=== PATIENT | female | born 1935 | race Caucasian/White ===

== ENCOUNTER 2016-07-27 16:12 | Observation (INO) | payer OTHER, MEDICARE ==
[~2016-07-27] VITALS: Ht 157.5 cm; Wt 51.3 kg
[~2016-07-27 16:12] MED LIST: VICODIN 5-3001 EACH PO
[2016-07-27] MEDS ORDERED: VALSARTAN80 M1 PO (16:41)
[2016-07-27] MEDS ORDERED: ANASTROZOLE1 M1 PO (16:41)
[2016-07-27] MEDS ORDERED: MULTAQ400 M1 PO (16:41)
[2016-07-27] MEDS ORDERED: ADVAIR 100-501 EACH INH (16:41)
[2016-07-27] MEDS ORDERED: SPIRIVA18 MCG INH (16:41)
[2016-07-27] MEDS ORDERED: ZOLPIDEM TARTRA10 M1 PO (16:42)
[2016-07-27] MEDS ORDERED: ASPIRIN EC325 M2 PO (16:42)
--- NOTE | 2016-07-27 16:42 | ED GENERAL ADULT ---
History of Present Illness General Chief Complaint: Chest Pain Stated Complaint: SIB DR. WYATT FOR EVAL/ADMISSION, ?[place] Source: patient Exam Limitations: no limitations Vital Signs & Intake/Output Vital Signs & Intake/Output Vital Signs Date Time Temp Pulse Resp B/P B/P Pulse O2 O2 Flow FiO2 Mean Ox Delivery Rate 07/27 2029 Nasal 2.0L Cannula 07/27 1946 74 20 154/70 95 Nasal 2.0L Cannula 07/27 1908 97.2 59 16 157/70 96 Room Air 07/27 1633 98.9 97 18 157/77 97 Room Air Allergies Coded Allergies: venom-honey bee (ANAPHYLAXIS 07/27/16) Reconcile Medications Anastrozole 1 MG TABLET 1 TAB PO DAILY BREAST CANCER (Reported) Aspirin (Ecotrin*) 325 MG TABLET.DR 1 TAB PO DAILY HEART/BLOOD (Reported) Calcium Carbonate/Vitamin D3 (Calcium 500 + D Tablet) (Unknown Strength) TABLET (Unknown Dose) PO DAILY SUPPLEMENT (Reported) Diltiazem HCl (Cartia Xt) 120 MG CAP.ER.24H 1 CAP PO DAILY HEART/BP (Reported ) Dronedarone HCl (Multaq) 400 MG TABLET 1 TAB PO DAILY HEART (Reported) Fluticasone-Salmeterol (Advair 100-50 Diskus) 100 MCG-50 MCG/DOSE BLST.W.DEV 1 PUF INH BID COPD (Reported) Gluc 2KCL/Chondr/Ghulam Hy/Hy AC (Glucosamine & Chondroitin Cap) (Unknown Strength ) CAPSULE (Unknown Dose) PO DAILY SUPPLEMENT (Reported) Tiotropium [place] (Spiriva) 18 MCG CAP.W.DEV 1 CAP INH DAILY COPD (Reported) Valsartan 80 MG TABLET 1 TAB PO DAILY BP (Reported) Zolpidem Tartrate 10 MG TABLET 1 TAB PO PRN SLEEP (Reported) Triage Note: PT TO ED FROM DR. WYATT'S OFFICE FOR ONE EPISDOE OF CHEST TIGHTNESS AROUND "LUNCH TIME" TODAY. PT REPORTING SHE WAS EATING LUNCH AND FELT A TIGHTNESS AROUND HER CHEST AND INTO BOTH HER SHOULDERS, STATING SHE HAD SOME ASSOCIATED SOB AND NAUSEA WHICH RESOLVED ON ITS OWN. SHE CALLED EDMUNDO WHO SAW HER IN THE OFFICE AND REFERRED HER TO COME TO ED FOR EVAL. ON ARRIVAL, PT REPORTING SHE FEELS TIRED BUT IS CP FREE. Triage Nurses Notes Reviewed? yes Onset: Abrupt Duration: day(s): Timing: recent history HPI: 5/30/17 5:10 PM 81-year-old female presents to the emergency department complaining of chest tightness. The patient states several hours ago she was at home and developed retrosternal chest pain radiating across her chest. She said the episode lasted approximately 15 minutes. The onset of the symptoms were abrupt, the duration was earlier today, the severity was significant; as her symptoms required her to come to the emergency department for care. She was seen and evaluated by her animal science professor who referred the patient to the hospital for inpatient observation. Past History Travel History Traveled to [place] past 21 day No Medical History Any Pertinent Medical History? 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 No Review of Systems Review of Systems Constitutional: Denies: fever. EENTM: Denies: visual changes. Respiratory: Denies: short of breath. Cardiovascular: Reports: chest pain. GI: Denies: abdominal pain. Genitourinary: Reports: no symptoms. Musculoskeletal: Reports: no symptoms. Skin: Reports: no symptoms. Neurological/Psychological: Denies: headache. Hematologic/Endocrine: Denies: bruising. Immunologic/Allergic: Reports: no symptoms. Physical Exam Physical Exam General Appearance: well developed/nourished, alert, awake, anxious, mild distress Head: atraumatic, normal appearance Eyes: Bilateral: normal appearance, PERRL, EOMI. Ears, Nose, Throat: normal pharynx, normal ENT inspection Neck: normal inspection, supple, full range of motion Respiratory: normal breath sounds, chest non-tender, no respiratory distress Cardiovascular: regular rate/rhythm Peripheral Pulses: 4+ radial (R), 4+ radial (L) Gastrointestinal: soft, non-tender Back: normal inspection, vertebral tenderness Extremities: normal inspection, normal range of motion, no edema Neurologic/Psych: no motor/sensory deficits, awake, alert, oriented x 3 Skin: intact, normal color, warm/dry Comments: The patient was placed on a monitor. The patient stated she took 325 mg of aspirin at the onset of the pain just prior to arrival. Core Measures ACS in differential dx? Yes CVA/TIA Diagnosis: No Severe Sepsis Present: No Septic Shock Present: No Progress Differential Diagnoses I considered the following diagnoses in my evaluation of the patient: [Acute coronary syndrome, aortic dissection, costochondritis, pericarditis, pulmonary embolism] Plan of Care: Orders Procedure Date/time Status Heart Healthy Diet 07/28 D Active Heart Healthy Diet 07/28 B Active MAGNESIUM 07/28 06 Active CBC WITHOUT DIFFERENTIAL 07/28 0600 Active BASIC ELECTROLYTES PLUS BUN&CR 07/28 0600 Active TROPONIN LEVEL 07/28 0440 Active LIPID PANEL 07/28 0440 Active EKG 07/28 0440 Active TROPONIN LEVEL 07/27 2240 Active EKG 07/27 2240 Active Vital Signs 07/27 2024 Active Teach/Educate 07/27 2024 Active Pain Treatment and Response 07/27 2024 Active Nutritional Intake, Monitor 07/27 2024 Active Isolation 07/27 2024 Active Intake & Output 07/27 2024 Active Patient Care Conference 07/27 2024 Active Activity/Ambulation 07/27 2024 Active Code Status 07/27 1849 Active Pathway - chart 07/27 1826 Active Patient Data 07/27 1826 Active Intake & Output 07/27 1814 Active Patient Data 07/[address] in observation 07/27 1743 Active Vital Signs 07/27 1743 Active Code Status 07/27 1743 Complete TROPONIN LEVEL 07/27 1632 Complete PROTHROMBIN TIME 07/27 1632 Complete COMPREHENSIVE METABOLIC PANEL 07/27 1632 Complete CBC WITHOUT DIFFERENTIAL 07/27 1632 Complete EKG 07/27 1613 Active Saline Lock 07/27 UNK Active Pathway - chart 07/27 UNK Active House Staff 07/27 UNK Active ACS Core Measures 07/27 UNK Active VTE Mechanical Prophylaxis 07/27 UNK Active Vital Signs 07/27 UNK Active Telemetry/Active Directory Specialist 07/27 UNK Active Intake & Output 07/27 UNK Active Hemoccult 07/27 UNK Active CASE MANAGEMENT CONSULT 07/27 UNK Active Current Medications Sig/Juancarlos Start time Last Medication Dose Stop Time Status Admin Budesonide/ 2 PUF BID 07/27 2200 UNVr Formoterol Fumarate (SYMBICORT) Acetaminophen 650 MG Q6P PRN 07/27 1830 AC (Tylenol) Acetaminophen 1,000 MG Q6P PRN 07/27 1829 AC (Ofirmev) Oxycodone/ 2 TAB Q6P PRN 07/27 1829 AC Acetaminophen (Percocet) Enoxaparin Sodium 40 MG DAILY 07/28 1823 AC 07/27 (Lovenox) 1936 Laboratory Tests 07/27/16 1639: Anion Gap 11, Estimated GFR > 60, BUN/Creatinine Ratio 26.0 H, Glucose 81, Calcium 9.1, Total Bilirubin 0.7, AST 27, ALT 45, Alkaline Phosphatase 119, Troponin I < 0.01, Total Protein 7.1, Albumin 4.2, Globulin 2.9, Albumin/ Globulin Ratio 1.4, PT 10.6, INR 1.01, CBC w Diff NO MAN DIFF REQ, RBC 4.87, MCV 93.6, MCH 31.2 H, RDW 13.9, MPV 8.0, Gran % 69.8, Lymphocytes % 21.3, Monocytes % 7.5, Eosinophils % 0.8, Basophils % 0.6, Absolute Granulocytes 4.9, Absolute Lymphocytes 1.5, Absolute Monocytes 0.5, Absolute Eosinophils 0.1, Absolute Basophils 0, PUBS MCHC 33.3 CXR Impression: no acute abnormality, no infiltrates Initial ED EKG: NSR, PVC Prior EKG: changed Departure Departure Disposition: STILL A PATIENT Condition: Stable Clinical Impression Primary Impression: Chest pain Secondary Impressions: PVC (premature ventricular contraction) Referrals: BEN LUCIO MD (PCP/Family) Departure Forms: Customer Survey General Discharge Information Observation Note Spoke With: EDMUNDO GONZALEZ PhD,SEMAJ Dominic Physician Advisor Notified: EVERT REYES DO Place Patient In: Non-ED OBS Care Area Rationale for Observation: My rational for observation is as follows [ the patient needs serial troponins, inpatient echocardiogram, cardiology consultation]. Critical Care Note Critical Care Note Critical Care Time: non-applicable
[2016-07-27] MEDS ORDERED: CALCIUM 500 +1 EAC5 PO (16:43)
[2016-07-27] MEDS ORDERED: GLUCOSAMINE &1 EAC1 PO (16:43)
[2016-07-27] MEDS ORDERED: CARTIA XT120 M1 PO (16:45)
[2016-07-27 17:00] LABS: PT 10.6 SEC (9.4-12.5)
[2016-07-27 17:01] LABS: ABSOLUTE BASOPHIL COUNT 0 /CUMM (0.0-0.2); ABSOLUTE EOSINOPHIL COUNT 0.1 /CUMM (0.0-0.7); ABSOLUTE GRANULOCYTE CT 4.9 /CUMM (1.4-6.5); ABSOLUTE LYMPH COUNT 1.5 /CUMM (1.2-3.4); ABSOLUTE MONOCYTE COUNT 0.5 /CUMM (0.10-0.60); BASOPHIL % 0.6 % (0.0-2.0); EOSINOPHIL % 0.8 % (0-5); GRANULOCYTE % 69.8 % (42.2-75.2); HEMATOCRIT 45.6 % (37-47); MEAN CORPUSCULAR HGB 31.2 PG (27.0-31.0); MEAN CORPUSCULAR HGB CONC 33.3 G/DL (33.0-37.0); MEAN CORPUSCULAR VOLUME 93.6 FL (81.0-99.0); PLATELET COUNT 215 /CUMM (130-400); RBC DISTRIBUTION WIDTH 13.9 % (11.5-14.5); RED BLOOD CELL CT 4.87 /CUMM (4.20-5.40)
--- NOTE | 2016-07-27 17:02 | RADIOLOGY REPORT ---
EXAMINATION: XR PORTABLE CHEST CLINICAL INFORMATION: Chest pain COMPARISON: 08/26/2015 TECHNIQUE: Portable frontal view of the chest was obtained. FINDINGS: Severe emphysema. No focal consolidation, pulmonary edema, or pleural effusion. Stable mild cardiomegaly. IMPRESSION: Severe emphysema. No new abnormality.
--- NOTE | 2016-07-27 18:20 | History & Physical ---
General Information and [facility] MD Statement: I have seen and personally examined SHARON VAUGHN I and documented this H&P. The patient is a 81 year old F who presented with a patient stated chief complaint of [CHEST PAIN]. Source of Information: patient, family, old records Exam Limitations: no limitations History of Present Illness: This is a 81 YO Female with past medical h/o end-stage COPD ( emphysema), A fib not on AC,htn,anxiety, insomnia came in with chief complaint of chest tightness on the morning of day of admission. Apparently the patient was doing all right when on the day of admission around afternoon time when she was having her lunch she felt chest tightness that was all across radiating to bilateral shoulders, it was 4-5 out of 10, it was a pressure-like pain, lasted for 5 minutes, after which it resolved on its own. The patient felt a little spacey and not with it after the episode. She called her junior financial analyst Dr. Perkins who asked her to come see her in the office, and subsequently was referred to [facility] for further evaluation. Patient notes that she had terrible insomnia for past 2 weeks, which has decently disorder and she has been great getting her regular sleep for last 2-3 days. She feels like her vision is not completely normal however she cannot describe clearly what is the problem, there is no blurriness or vision changes, however she feels like her eyes are tired and aching. She was a previous smoker smoked for 15-20 years, 1-1/2 pack however has left smoking for last 30-40 years, she consumes alcohol occasionally, she does not use any illicit drugs, no [id number] medications. She said that she had one episode of diarrhea 1 week ago. She denied any lower extremity swelling, lightheadedness, syncope, racing of her heart, unstable patient, nausea Allergies/Medications Allergies: Coded Allergies: venom-honey bee (ANAPHYLAXIS 07/27/16) Home Med list Anastrozole 1 MG TABLET 1 TAB PO DAILY BREAST CANCER (Reported) LAST TAKEN 07/28/16 @ 0903 Aspirin (Ecotrin*) 325 MG TABLET. 1 TAB PO DAILY HEART/BLOOD (Reported) LAST TAKEN 07/28/16 @ 0903 Calcium Carbonate/Vitamin D3 (Calcium 500 + D Tablet) (Unknown Strength) TABLET (Unknown Dose) PO DAILY SUPPLEMENT (Reported) NOT TAKEN DURING ADMISSION Diltiazem HCl (Cartia Xt) 120 MG CAP.ER.24H 1 CAP PO DAILY HEART/BP (Reported ) LAST TAKEN 07/28/16 @ 0903 Dronedarone HCl (Multaq) 400 MG TABLET 1 TAB PO DAILY HEART (Reported) LAST TAKEN 07/28/16 @ 0903 Fluticasone-Salmeterol (Advair 100-50 Diskus) 100 MCG-50 MCG/DOSE BLST.W.DEV 1 PUF INH BID COPD (Reported) NOT TAKEN DURING THIS ADMISSION Gluc 2KCL/Chondr/Ghulam Hy/Hy AC (Glucosamine & Chondroitin Cap) (Unknown Strength ) CAPSULE (Unknown Dose) PO DAILY SUPPLEMENT (Reported) NOT TAKEN THIS ADMISSION Nitroglycerin (Nitroglycerin Patch) 0.4 MG/HOUR PATCH.TD24 0.4 MG TOP DAILY chest pain Tiotropium [place] (Spiriva) 18 MCG CAP.W.DEV 1 CAP INH DAILY COPD (Reported) NOT TAKEN THIS ADMISSION Valsartan 80 MG TABLET 1 TAB PO DAILY BP (Reported) NOT TAKEN THIS ADMISSION Zolpidem Tartrate 10 MG TABLET 1 TAB PO PRN SLEEP (Reported) NO TAKEN THIS ADMISSION Compliance With Home Meds: FAIR Past History Travel History Traveled to [facility] past 21 day No Medical History Neurological: NONE EENT: NONE Cardiovascular: AFIB Respiratory: emphysema Gastrointestinal: NONE Hepatic: NONE Renal: NONE Musculoskeletal: NONE Psychiatric: NONE Endocrine: NONE Blood Disorders: NONE Cancer(s): NONE 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 Home Who Do You Live With? spouse Services at Home: None Smoking Status: Former Smoker ETOH Use: occasional use Illicit Drug Use: denies illicit drug use Functional Ability ADLs Independent: dressing, eating, toileting, bathing. Ambulation: independent IADLs Independent: shopping, housework, finances, food prep, telephone, transportation , medication admin. Review of Systems Review of Systems Constitutional: Reports: diaphoresis, malaise, weakness. Denies: chills, fever. EENTM: Denies: blurred vision, double vision, visual changes, eye drainage. Cardiovascular: Reports: chest pain. Denies: edema, orthopena, palpitations, peripheral edema, syncope. Respiratory: Denies: cough, hemoptysis, orthopnea, short of breath, sputum production. GI: Denies: abdominal pain, bloating, constipation, diarrhea, distention. Genitourinary: Reports: no symptoms. Musculoskeletal: Reports: no symptoms. Skin: Reports: no symptoms. Neurological/Psychological: Reports: no symptoms. Hematologic/Endocrine: Reports: no symptoms. Immunologic/Allergic: Reports: no symptoms. All Other Systems: Reviewed and Negative Exam & Diagnostic Data Last 24 Hrs of Vital Signs/I&O Vital Signs Date Time Temp Pulse Resp B/P B/P Pulse O2 O2 Flow FiO2 Mean Ox Delivery Rate 07/28 0023 97.9 57 12 150/76 100 Nasal 2.0L Cannula 07/28 0000 Nasal 2.0L Cannula 07/27 2200 140/78 07/27 2030 Nasal 2.0L Cannula 07/27 1946 74 20 154/70 95 Nasal 2.0L Cannula 07/27 1908 97.2 59 16 157/70 96 Room Air 07/27 1633 98.9 97 18 157/77 97 Room Air Intake & Output 07/28 0800 07/28 0000 07/27 1600 Intake Total 120 Output Total Balance 120 Intake, Oral 120 Patient 51.256 kg Weight Weight Estimated Measurement Method Physical Exam General Appearance Alert, Oriented X3, Cooperative, Mild Distress Skin No Rashes, No Breakdown, No Significant Lesion Skin Temp/Moisture Exam: Warm/Dry Sepsis Skin Exam (color): Normal for Ethnicity HEENT Atraumatic, PERRLA, EOMI Neck Supple, No JVD Lymphatic no lad Cardiovascular Normal S1, Normal S2, No Murmurs Lungs Clear to Auscultation, Normal Air Movement Abdomen Normal Bowel Sounds, Soft, No Tenderness Neurological nonfocal Extremities No Clubbing, No Cyanosis, No Edema, Normal Pulses Vascular Normal Pulses Last 24 Hrs of Labs/Isidro: Laboratory Tests 07/27/16 2250: Troponin I < 0.01 07/27/16 1639: Anion Gap 11, Estimated GFR > 60, BUN/Creatinine Ratio 26.0 H, Glucose 81, Calcium 9.1, Total Bilirubin 0.7, AST 27, ALT 45, Alkaline Phosphatase 119, Troponin I < 0.01, Total Protein 7.1, Albumin 4.2, Globulin 2.9, Albumin/ Globulin Ratio 1.4, PT 10.6, INR 1.01, CBC w Diff NO MAN DIFF REQ, RBC 4.87, MCV 93.6, MCH 31.2 H, RDW 13.9, MPV 8.0, Gran % 69.8, Lymphocytes % 21.3, Monocytes % 7.5, Eosinophils % 0.8, Basophils % 0.6, Absolute Granulocytes 4.9, Absolute Lymphocytes 1.5, Absolute Monocytes 0.5, Absolute Eosinophils 0.1, Absolute Basophils 0, PUBS MCHC 33.3 Diagnostic Data EKG Results NSR,rate of 62,ventricular trigeminy, ! degree AV block 204, QTC - 447 CXR Results No cardiopulmonary findings. Assessment/Plan Assessment: This is a 81 YO Female with past medical h/o end-stage COPD ( emphysema), A fib not on AC,htn,anxiety, insomnia came in with chief complaint of chest tightness on the morning of day of admission, which was pressure like tightness,4-5 out of 10, lasted for 5 minutes, after which it resolved on its own. Vitals :157/77mmhg, HR pf 97, Tmax 98.9, RR of 18. Relevants labs : CBC, lytes WNL. LFT's normal, calcium of 9.1 initial set of troponin negative. NSR,rate of 62,ventricular trigeminy, 1 degree AV block 204, QTC - 447 CXR didn't show any acute cardiopulmonary findings. Problem list alongwith assessment and plan #1 Chest pain Unstable angina v/s Rule ot ACS We will admit the patient for 24 hours observation to rule out ACS PAtient chest pain is pressure like,se doesn't not have any major risk factors other than HTN. * Continue to monitor vitas q shift * Ct to monitor In/output * Ct to trend EKG and troponin. * If troponin positive or EKG changes please contact cardio stat. * Patient received one time of aspirin in the ER. * Will obtain echo in am. * PAtient will be admitted under cardiology. * If she remains stable and no troponin of EKG, she will need cardiac risk stratification with stress test. * Await cardiology recommendations regarding IV heparin. * Signed out to night float team to follow cardio recommendations. * Patiet has been guaic, and is guaic negative. #2 HTN * Ct Valsartan. #3 H/o A fib not on AC * Ct dronedrone. * Ct diltiazem. * Ct aspirin. #4 H/o COPD * TRC. nebulisations. DNR/DNI Heart healthy diet Mild, moderate severe PP ordered. DVT px : lovenox As Ranked By This Provider Problem List: 1. PVC (premature ventricular contraction) 2. Chest pain Core Measures/Miscellaneous Acute Coronary Syndrome ACS Diagnosis: No Cerebrovascular Accident CVA/TIA Diagnosis: No Congestive Heart Failure CHF Diagnosis: No Venous Thromboembolism VTE Risk Factors: Age > 40 [facility] d/t: No contraindications No VTE Pharm Prophylaxis d/t: No contraindications VTE Diagnosis: No VTE Type: NONE VTE Confirmed by (Test): NONE Severe Sepsis Severe Sepsis Present: No Septic Shock Septic Shock Present: No Miscellaneous Documentation Attending Case Discussed With: EDMUNDO GONZALEZ PhD,SEMAJ Alfaro Primary Care Physician: BEN LUCIO MD Patient sees these Specialists Cardio Level of Patient Care: Telemetry
--- NOTE | 2016-07-27 19:10 | Cons- Cardiology ---
General Information and HPI Consulting Request Date of Consult: 07/27/16 Requested By: EDMUNDO GONZALEZ PhD,SEMAJ Alfaro History of Present Illness: Bessy carries a history of end-stage COPD and was initially seen in [facility] for acute respiratory distress. This occurred in February of 2011. At that time she ruled in for a non-ST elevation myocardial infarction. An echocardiogram disclosed akinesis of the mid to apical left ventricle, with a hyperdynamic basal left ventricle. The patient was initially treated with steroids and antibiotics, as well as inhalers, with improvement in her respiratory status. She was also noted to have paroxysmal atrial fibrillation, versus multifocal atrial tachycardia. This dysrhythmia was initially treated with Amiodarone to reasonably good effect and she has subsequently been started on Multaq instead of the Amiodarone due to its better side effect profile. Workup did include a cardiac catheterization which showed evidence of patent coronary arteries, with a low ejection fraction of 25%. 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 Over the past weeks Bessy has noted recurrent episodes of moderate chest discomfort radiating to her shoulders associated with nausea and shortness of breath. She had a particularly long episode today and presented to my office where she was found to be severely hypertensive. An ECG did not disclose any ST segment changes but ventricular ectopy was noted. Her most recent ejection fraction was measured at 55%. There were no regional wall motion abnormalities. trace aortic, mild mitral, moderate tricuspid, and mild pulmonic regurgitation. Bessy has stress related to her husbands health. At her baseline does have shortness of breath with moderate activity but this is unchanged. In absolute terms she reports being able to go up and down a flight of twelve steps eight times in a row. She is very concerned about a decrease in her short term memory. correlate with increased caffeine intake. There is no orthopnea. Bessy has been taken off her Lasix since I last saw her and seems to be doing reasonably well without this medication. It should be recalled that the patient was previously on Lisinopril; however, this medication was discontinued due to itchiness. To review the patient's coronary anatomy: The left main is short, cloacal and patent. The LAD is a large vessel that wraps around the apex. It is patent. The left circumflex is a large dominant vessel and is patent. It's tortuous, consistent with hypertensive heart disease. The right coronary artery is non- dominant, but not diminutive, and is patent. Allergies/Medications Allergies: Coded Allergies: venom-honey bee (ANAPHYLAXIS 07/27/16) Home Med List: Anastrozole 1 MG TABLET 1 TAB PO DAILY BREAST CANCER (Reported) Aspirin (Ecotrin*) 325 MG TABLET.DR 1 TAB PO DAILY HEART/BLOOD (Reported) Calcium Carbonate/Vitamin D3 (Calcium 500 + D Tablet) (Unknown Strength) TABLET (Unknown Dose) PO DAILY SUPPLEMENT (Reported) Diltiazem HCl (Cartia Xt) 120 MG CAP.ER.24H 1 CAP PO DAILY HEART/BP (Reported ) Dronedarone HCl (Multaq) 400 MG TABLET 1 TAB PO DAILY HEART (Reported) Fluticasone-Salmeterol (Advair 100-50 Diskus) 100 MCG-50 MCG/DOSE BLST.W.DEV 1 PUF INH BID COPD (Reported) Gluc 2KCL/Chondr/Ghulam Hy/Hy AC (Glucosamine & Chondroitin Cap) (Unknown Strength ) CAPSULE (Unknown Dose) PO DAILY SUPPLEMENT (Reported) Tiotropium [place] (Spiriva) 18 MCG CAP.W.DEV 1 CAP INH DAILY COPD (Reported) Valsartan 80 MG TABLET 1 TAB PO DAILY BP (Reported) Zolpidem Tartrate 10 MG TABLET 1 TAB PO PRN SLEEP (Reported) Review of Systems Review of Systems: A rwlve point review of systems is unremarkable. 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 Surgical History Surgical History: non-contributory Psychosocial History Services at Home: None Exam & Diagnostic Data Vital Signs and I&O Vital Signs Date Time Temp Pulse Resp B/P B/P Pulse O2 O2 Flow FiO2 Mean Ox Delivery Rate 07/28 0823 97.8 70 18 124/76 96 Nasal 2.0L Cannula 07/28 0023 97.9 57 12 150/76 100 Nasal 2.0L Cannula 07/28 0000 Nasal 2.0L Cannula 07/27 2200 140/78 05/30 2030 Nasal 2.0L Cannula 07/27 1945 74 20 154/70 95 Nasal 2.0L Cannula 07/27 1908 97.2 59 16 157/70 96 Room Air 07/27 1633 98.9 97 18 157/77 97 Room Air Intake & Output 07/28 1600 07/28 0800 07/28 0000 07/27 1600 07/27 0800 07/27 0000 Intake Total 120 120 Output Total Balance 120 120 Intake, Oral 120 120 Patient 113 lb 113 lb Weight Weight Estimated Measurement Method Physical Exam: General: WD/WN female in NAD; alert and oriented x 3 HEENT: NC/ AT, PERRL, EOMI Neck: no JVD, no carotid bruit Heart: RRR with ectopy Lungs: no crackles or wheezing with decreased air movement Abdomen: soft, NT, +ve bowel sounds Extremities: no edema Assessment/Plan Assessment/Plan * This patient has symptoms consistent with unstable angina without any acute ischemic electrocardiographic changes. We will admit this patient to telemetry and rule her out for an ID. If she rules out then risk stratification with a treadmill nuclear stress test can be done as soon as the patient severe hypertension is adequately addressed. It is possible that the patient has subendocardial ischemia related to her severe hypertension. * Begin IV heparin, Plavix and continue aspirin. * Begin NTG patch at 0.4mg/hr for angina and better control of her BP. Increase Valsartan to 80mg BID. Consult Acknowledgment - Thank you for your consult request.
[2016-07-27 22:00] VITALS: BP 140/78
[2016-07-28 00:23] VITALS: BP 150/76
[2016-07-28 05:18] LABS: ABSOLUTE BASOPHIL COUNT 0 /CUMM (0.0-0.2); ABSOLUTE EOSINOPHIL COUNT 0.1 /CUMM (0.0-0.7); ABSOLUTE GRANULOCYTE CT 2.8 /CUMM (1.4-6.5); ABSOLUTE LYMPH COUNT 1.3 /CUMM (1.2-3.4); ABSOLUTE MONOCYTE COUNT 0.6 /CUMM (0.10-0.60); BASOPHIL % 0.5 % (0.0-2.0); GRANULOCYTE % 57.9 % (42.2-75.2); HEMATOCRIT 41.8 % (37-47); MEAN CORPUSCULAR HGB 31.1 PG (27.0-31.0); MEAN CORPUSCULAR HGB CONC 33.3 G/DL (33.0-37.0); MEAN CORPUSCULAR VOLUME 93.5 FL (81.0-99.0); MEAN PLATELET VOLUME 7.8 FL (7.4-10.4); PLATELET COUNT 211 /CUMM (130-400); RBC DISTRIBUTION WIDTH 13.4 % (11.5-14.5); RED BLOOD CELL CT 4.47 /CUMM (4.20-5.40); WHITE BLOOD CELL COUNT 4.9 /CUMM (4.8-10.8)
--- NOTE | 2016-07-28 05:23 | Event Note ---
Event Note Event Note: Pt has negative troponins and no acute ST changes. It was communicated to night float team to NOT start heparin unless mentioned in cardiology noted or acute indications of ACS. As neither were present, heparin not started.
--- NOTE | 2016-07-28 07:43 | PN- Housestaff ---
Subjective Follow-up For: CHEST PAIN Tele-Events Since Last Visit: 1st degree, HR 40s to 50s. No events. Subjective: Hemodynamically stable. saturating well on room air. No overnight events reported. Patient denies any current active complaints. Review of Systems Constitutional: Reports: no symptoms. Objective Last 24 Hrs of Vital Signs/I&O Vital Signs Date Time Temp Pulse Resp B/P B/P Pulse O2 O2 Flow FiO2 Mean Ox Delivery Rate 07/28 1115 91 Room Air 07/28 1114 91 07/28 0903 70 124/76 07/28 0823 97.8 70 18 124/76 96 Nasal 2.0L Cannula 07/28 0800 Nasal 2.0L Cannula 07/28 0800 95 Nasal 2.0L Cannula 07/28 0023 97.9 57 12 150/76 100 Nasal 2.0L Cannula 07/28 0000 Nasal 2.0L Cannula 07/27 2200 140/78 07/27 2030 Nasal 2.0L Cannula 07/27 1946 74 20 154/70 95 Nasal 2.0L Cannula 07/27 1908 97.2 59 16 157/70 96 Room Air Intake & Output 07/28 1600 07/28 0800 07/28 0000 Intake Total 600 120 120 Output Total Balance 600 120 120 Intake, Oral 600 120 120 Patient 51.256 kg 51.256 kg 51.256 kg Weight Weight Estimated Measurement Method Physical Exam General Appearance: Alert, Oriented X3, Cooperative, No Acute Distress HEENT: Atraumatic, PERRLA, EOMI, Mucous Membr. moist/pink Cardiovascular: Regular Rate, Normal S1, Normal S2, No Murmurs Lungs: Clear to Auscultation, Normal Air Movement Abdomen: Soft, No Tenderness Neurological: Normal Speech Extremities: No Clubbing, No Cyanosis, No Edema Current Medications: Current Medications Sig/Juancarlos Start time Last Medication Dose Route Stop Time Status Admin Acetaminophen 650 MG Q6P PRN 07/27 1829 AC PO Acetaminophen 1,000 MG Q6P PRN 07/27 183 AC IV Anastrozole 1 MG DAILY 07/28 1000 AC 07/28 PO 0903 Aspirin Buffered 325 MG DAILY 07/28 1000 AC 07/28 PO 0903 Budesonide/ 2 PUF BID 07/27 2200 AC 07/28 Formoterol Fumarate INH 0904 Diltiazem HCl 120 MG DAILY 07/28 1000 AC 07/28 PO 0903 Dronedarone 400 MG DAILY 07/28 1000 AC 07/28 PO 0903 Enoxaparin Sodium 0 .STK-MED ONE 07/27 1940 DC SC Enoxaparin Sodium 40 MG DAILY 07/27 1824 AC 07/28 SC 0903 Heparin Sodium 25,000 UNIT Q24H 07/28 1000 DC (Porcine) IV Sodium Chloride 500 ML Nitroglycerin 0.4 MG DAILY 07/28 1000 AC 07/28 TOP 1328 Oxycodone/ 2 TAB Q6P PRN 07/27 1830 AC Acetaminophen PO Patient Medication 1 ED .STK-MED ONE 07/28 1413 DC Teaching ED 07/28 1414 Last 24 Hrs of Lab/Isidro Results Last 24 Hrs of Labs/Mics: Laboratory Tests 07/28/16 0600: Magnesium Cancelled 07/28/16 0455: Anion Gap 9, Estimated GFR > 60, BUN/Creatinine Ratio 21.7, Magnesium 2.1, Troponin I < 0.01, Triglycerides 63, Cholesterol 174, LDL Cholesterol, Calc 80, HDL Cholesterol 82 H, Cholesterol/HDL Ratio 2, CBC w Diff NO MAN DIFF REQ, RBC 4.47, MCV 93.5, MCH 31.1 H, RDW 13.4, MPV 7.8, Gran % 57.9, Lymphocytes % 26.8, Monocytes % 12.8 H, Eosinophils % 2.0, Basophils % 0.5, Absolute Granulocytes 2.8, Absolute Lymphocytes 1.3, Absolute Monocytes 0.6, Absolute Eosinophils 0.1, Absolute Basophils 0, PUBS MCHC 33.3 07/28/16 0440: CBC w Diff Cancelled, WBC Cancelled, RBC Cancelled, Hgb Cancelled, Hct Cancelled , MCV Cancelled, MCH Cancelled, RDW Cancelled, Plt Count Cancelled, MPV Cancelled, PUBS MCHC Cancelled 07/27/16 2250: Troponin I < 0.01 Assessment/Plan Assessment: #1 Chest pain * ACS was ruled out with serial EKG and troponin. * start NTG patch * If she remains stable and not troponin of EKG, she will need cardiac risk strtification with stress test. #2 HTN * Cont' Valsartan. * now BP WNL #3 H/O A fib not on AC * Ct dronedrone. * Ct diltiazem. * Ct aspirin. #4 H/O COPD * TRC. nebulisations. DNR/DNI Heart healthy diet Mild, moderate severe PP ordered. DVT px : lovenox Problem List: 1. Chest pain Pain Ratin Pain Location: chest Pain Goal: Remain pain free Pain Plan: See A&P Tomorrow's Labs & Rationales: none
[2016-07-28 08:23] VITALS: BP 124/76
[2016-07-28 09:03] VITALS: BP 124/76
--- NOTE | 2016-07-28 13:38 | Patient Discharge Instructions ---
Discharge Instructions General Discharge Information You were seen/treated for: Chest pain Special Instructions: Please follow up with cardiology within 1 week Please follow up with your primary care doctor within 1 week Diet Continue normal diet: Yes Activity Full Activity/No Limits: Yes Activity Self Limited: Yes Acute Coronary Syndrome Inclusion Criteria At DC or during hospital stay patient has or had the following: ACS DIAGNOSIS No Discharge Core Measures Meds if any: Prescribed or Continued at Discharge Meds if any: NOT Prescribed or Continued at Discharge Congestive Heart Failure Inclusion Criteria At DC or during hospital stay patient has or had the following: CHF DIAGNOSIS No Discharge Core Measures Meds if any: Prescribed or Continued at Discharge Meds if any: NOT Prescribed or Continued at Discharge Cerebrovascular accident Inclusion Criteria At DC or during hospital stay patient has or had the following: CVA/TIA Diagnosis No Discharge Core Measures Meds if any: Prescribed or Continued at Discharge Meds if any: NOT Prescribed or Continued at Discharge Venous thromboembolism Inclusion Criteria VTE Diagnosis No VTE Type NONE VTE Confirmed by (Test) NONE Discharge Core Measures - Per Current guidelines, there needs to be overlap - treatment for the first 5 days of Warfarin therapy. - If discharged on Warfarin prior to 5 days of - overlap therapy, the patient will need to be - assessed for post discharge needs including - *Post discharge parental anticoagulation - *Warfarin and/or parental anticoagulation education - *Follow up date to check INR post discharge At least 5 days overlap therapy as Inpatient No Meds if any: Prescribed or Continued at Discharge Note: Overlap Therapy is Warfarin and Anticoagulant Meds if any: NOT Prescribed or Continued at Discharge
--- NOTE | 2016-07-28 14:54 | Cons- Cardiology ---
General Information and HPI Consulting Request Date of Consult: 07/28/16 Requested By: EDMUNDO GONZALEZ PhD,SEMAJ Alfaro History of Present Illness: * Bessy is doing well without chest discomfort. BP is improved on NTG. * Troponin is WNL Allergies/Medications Allergies: Coded Allergies: venom-honey bee (ANAPHYLAXIS 07/27/16) Home Med List: Anastrozole 1 MG TABLET 1 TAB PO DAILY BREAST CANCER (Reported) Aspirin (Ecotrin*) 325 MG TABLET.DR 1 TAB PO DAILY HEART/BLOOD (Reported) Calcium Carbonate/Vitamin D3 (Calcium 500 + D Tablet) (Unknown Strength) TABLET (Unknown Dose) PO DAILY SUPPLEMENT (Reported) Diltiazem HCl (Cartia Xt) 120 MG CAP.ER.24H 1 CAP PO DAILY HEART/BP (Reported ) Dronedarone HCl (Multaq) 400 MG TABLET 1 TAB PO DAILY HEART (Reported) Fluticasone-Salmeterol (Advair 100-50 Diskus) 100 MCG-50 MCG/DOSE BLST.W.DEV 1 PUF INH BID COPD (Reported) Gluc 2KCL/Chondr/Ghulam Hy/Hy AC (Glucosamine & Chondroitin Cap) (Unknown Strength ) CAPSULE (Unknown Dose) PO DAILY SUPPLEMENT (Reported) Tiotropium [place] (Spiriva) 18 MCG CAP.W.DEV 1 CAP INH DAILY COPD (Reported) Valsartan 80 MG TABLET 1 TAB PO DAILY BP (Reported) Zolpidem Tartrate 10 MG TABLET 1 TAB PO PRN SLEEP (Reported) Past History Travel History Traveled to [place] past 21 day No Medical History Neurological: NONE EENT: NONE Cardiovascular: AFIB Respiratory: emphysema Gastrointestinal: NONE Hepatic: NONE Renal: NONE Musculoskeletal: NONE Psychiatric: NONE Endocrine: NONE Blood Disorders: NONE Cancer(s): NONE SHAMPOOER/Reproductive: NONE Surgical History Surgical History: non-contributory Psychosocial History Where Do You Live? Home Who Do You Live With? spouse Services at Home: None Smoking Status: Former Smoker ETOH Use: occasional use Illicit Drug Use: denies illicit drug use Functional Ability ADLs Independent: dressing, eating, toileting, bathing. Ambulation: independent IADLs Independent: shopping, housework, finances, food prep, telephone, transportation , medication admin. Exam & Diagnostic Data Vital Signs and I&O Vital Signs Date Time Temp Pulse Resp B/P B/P Pulse O2 O2 Flow FiO2 Mean Ox Delivery Rate 07/28 1115 91 Room Air 05/31 1114 91 07/28 0903 70 124/76 07/28 0823 97.8 70 18 124/76 96 Nasal 2.0L Cannula 07/28 0800 Nasal 2.0L Cannula 07/28 0800 95 Nasal 2.0L Cannula 07/28 0023 97.9 57 12 150/76 100 Nasal 2.0L Cannula 07/28 0000 Nasal 2.0L Cannula 07/27 2200 140/78 07/27 2030 Nasal 2.0L Cannula 07/27 1946 74 20 154/70 95 Nasal 2.0L Cannula 07/27 1908 97.2 59 16 157/70 96 Room Air 07/27 1633 98.9 97 18 157/77 97 Room Air Intake & Output 07/28 1600 07/28 0800 07/28 0000 07/27 1600 07/27 0800 07/27 0000 Intake Total 600 120 120 Output Total Balance 600 120 120 Intake, Oral 600 120 120 Patient 113 lb 113 lb 113 lb Weight Weight Estimated Measurement Method Physical Exam: General: WD/WN female in NAD; alert and oriented x 3 HEENT: NC/ AT, PERRL, EOMI Neck: no JVD, no carotid bruit Heart: RRR with ectopy Lungs: no crackles or wheezing with decreased air movement Abdomen: soft, NT, +ve bowel sounds Extremities: no edema Assessment/Plan Assessment/Plan * This patient is doing better. She has ruled out for an OH and her blood pressure is better controlled. I suspect that she had subendocardial ischemia related to severe hypertensive excursions. We will discharge this patient to home with a plan for outpatient stress test. * Hypertension: continue Valsartan 80mg BID and NTG patch 0.4mg /hr for 12 hours daily. Consult Acknowledgment - Thank you for your consult request.
[2016-07-28] MEDS ORDERED: NITROGLYCERIN1 EACH TOP (15:01)
== END 2016-07-28 15:30 ==
LOC: ERH 16:12 → 1NO 17:43 → ERHI 17:43 → ENRESERV 18:36 → ENTRNSPT 19:55 → 1NO 20:15 → CMPTRNSPT 21:56 → 1NO 07-28 02:42 → ENPENDDIS 07-28 15:02 → 1NO 07-28 15:30
PROVIDERS: Emergency Medicine; Internal Medicine; ADMIT Internal Medicine Interventional Cardiology
DX: I24.8 Other forms of acute ischemic heart disease (principal); I10 Essential (primary) hypertension; J43.9 Emphysema, unspecified; I48.91 Unspecified atrial fibrillation; F41.9 Anxiety disorder, unspecified; G47.00 Insomnia, unspecified
CPT/HCPCS: 1328; 1425; 1530; 1748; 6020; 36415; 82436; 93005; 93010; 96372; G0378; J1644; J1650; J3490